=== PATIENT | female | born 1985 | race Two or more races ===

== ENCOUNTER 2025-01-14 18:24 | Observation (INO) | payer BC, MEDICAID, SELFPAY ==
[2025-01-14 18:42] VITALS: BP 154/90; PULSE 62; RESP 16; TEMP 36.8; O2SAT 99
--- NOTE | 2025-01-14 18:59 | XR_ITS ---
Examination: Abdomen sonogram, Limited Date and time of exam: January 14, 2025, 1930 hours INDICATIONS: Epigastric pain today Technique: Real-time renee scale transabdominal sonographic images of the upper abdomen obtained. Findings: Multiple gallstones Gallbladder wall 0.4 cm no definite edema Common bile duct 0.5 cm no stones Pancreatic duct 2.7 cm Liver 14.8 cm Normal hepatopetal portal venous flow Patent IVC IMPRESSION: Cholelithiasis Borderline thickening gallbladder wall, clinical correlation advised, consider HIDA scan or MRCP follow-up as clinically warranted to exclude acute cholecystitis
--- NOTE | 2025-01-14 19:00 | PD.EDRME ---
Rapid Medical Screening Exam [facility] Arrival date/time: 01/14/25 18:24 39F with history of gastric sleeve surgery presents to ED with RUQ/epigastric pain, N/V, and some non-bloody diarrhea. Patient denies dysuria. Patient just started her cycle as well. Chief Complaint: Abdominal Pain Vital signs: Vital Signs Temperature 98.3 F 01/14/25 18:42 Pulse Rate 62 01/14/25 18:42 Respiratory Rate 16 01/14/25 18:42 Blood Pressure 154/90 H 01/14/25 18:42 Pulse Oximetry (%) 99 01/14/25 18:42 Oxygen Delivery Method Room Air 01/14/25 18:42 Exam: RUQ tenderness Clinical Impression: biliary disease vs gastroenteritis vs pancreatitis vs gastritis vs ab pain
[2025-01-14] MEDS: ONDANSETRON ODT 4 MG TABRAP PO (19:15)
[2025-01-14] MEDS: MORPHINE SULF INJ 4 MG/ML VIAL IM (19:15)
[2025-01-14 19:59] LABS: Basophils # (Auto) 0.0 Thou/mm3 (0.0-0.2); Basophils % (Auto) 1 % (0-2.5); Eosinophils # (Auto) 0.0 Thou/mm3 (0.0-0.5); Eosinophils % (Auto) 0 % (0-10); Hematocrit 39.6 % (36.0-46.0); Hemoglobin 13.0 g/dL (12.0-16.0); Immature Granulocytes Auto 0.02 Thou/mm3 (0.00-0.00); Lymphocytes # (Auto) 2.1 Thou/mm3 (1.0-4.8); Lymphocytes % (Auto) 25 % (10-50); Mean Corpuscular HGB Conc 32.8 g/dl (31.0-37.0); Mean Corpuscular Hemoglobin 28.9 pg (25.0-35.0); Mean Corpuscular Volume 88 fL (80-100); Monocytes # (Auto) 0.5 Thou/mm3 (0.0-0.8); Monocytes % (Auto) 6 % (0-12); Neutrophils # (Auto) 5.9 Thou/mm3 (1.8-7.7); Neutrophils % (Auto) 68 % (37-80); Nucleated Red Blood Cell # 0.00 Thou/mm3 (0.00-0.00); Nucleated Red Blood Cell % 0 /100 WBC (0); Platelet Count 294 Thou/mm3 (140-440); RDW Standard Deviation 39.5 fL (36.4-46.3); Red Blood Count 4.50 Miln/mm3 (4.00-5.20); White Blood Count 8.7 Thou/mm3 (3.6-11.0)
[2025-01-14 20:13] LABS: Alanine Aminotransferase 49 U/L (10-49); Albumin, Serum 4.5 gm/dL (3.5-5.0); Albumin/Globulin Ratio 1.5 (1.2-2.2); Alkaline Phosphatase 140 U/L (46-116); Anion Gap 9 (7-16); Aspartate Amino Transferase 81 U/L (0-34); BUN/Creatinine Ratio 18 Ratio (12-20); Bilirubin,Total 0.5 mg/dL (0.3-1.2); Blood Urea Nitrogen 11 mg/dL (9-23); Calcium 9.3 mg/dL (8.3-10.6); Calcium (Corrected) 9.3 mg/dL (8.5-10.1); Carbon Dioxide 24.9 mMol/L (20.0-31.0); Chloride 107 mMol/L (98-107); Creatinine (Component) 0.6 mg/dL (0.6-1.3); Estimated Creatinine Clearance 130.9 mL/min (>60); Globulin 3.0 gm/dL (2.3-3.5); Glucose 107 mg/dL (74-106); Lipase 41 U/L (12-53); Osmolality,Calculated 280 (275-295); Potassium 3.8 mMol/L (3.4-5.1); Sodium 141 mMol/L (136-145); Total Protein 7.5 gm/dL (5.7-8.2); eGFR > 60 See Note
--- NOTE | 2025-01-14 20:45 | EDNOTE_ITS ---
ED Abdominal Pain RME/HPI General Chief Complaint: Abdominal Pain Stated complaint: ABD PAIN, PANIC ATTACK, N/V/D Arrival date/time: 01/14/25 18:24 RME / HPI RME / HPI narrative: 01/14/25 18:24 39F with history of gastric sleeve surgery presents to ED with RUQ/epigastric pain, N/V, and some non-bloody diarrhea. Patient denies dysuria. Patient just started her cycle as well. DR. MULLIGAN MAIN ED EVALUATION: Patient presents with second episode of intense RUQ abdominal pain described as sharp and stabbing with onset of 3 PM constant in nature since that time. Reports multiple bouts of non-bloody emesis. No diarrhea, urinary frequency, urgency, or dysuria. No definite fever or chills. Does note that both current and previous episodes occurred prandially. PMH: Anemia, Bobo's Palsy PSH: x4 Allergies: None Social: Non-smoker, Non-drinker, No illicit drug abuse Exam: RUQ tenderness Impression: biliary disease vs gastroenteritis vs pancreatitis vs gastritis vs ab pain Related Data Home Medications ?Medication ?Instructions ?Recorded ?Confirmed No Known Home Medications 02/15/2206/19 Allergies Allergy/AdvReac Type Severity Reaction Status Date / Time No Known Allergies Allergy Verified 01/14/25 18:27 Review of Systems Review of Systems Systems Reviewed: All systems reviewed, normal except as documented Past Medical History Past Medical History NEUROLOGIC: Positive Bobo's Palsy and Migraine REPRODUCTIVE: Positive Previous Pregnancies HEMATOLOGIC: Positive Blood Disorders and Anemia Surgical History SURGICAL: Positive Section (x4) ED Exam Narrative Physical exam: GEN. APPEARANCE: The patient is alert awake oriented X-3 under moderate distress, writhing due evens RUQ abdominal pain, does not look ill/toxic. Patient has good eye contact. Patient is cooperative. VITALS: All vitals were reviewed and the pulse ox is 99%, which is normal according to my interpretation HEENT: Normocephalic, atraumatic and nontender. Pupils are equal and reactive. Oral mucosa is moist. NECK: Supple, nontender, no meningismus, no JVD. There is no thyromegaly and no lymphadenopathy. CHEST: Nontender on palpation no deformity and no crepitus. CARDIOVASCULAR: Heart regular rhythm, no murmur or gallop rub or extra beats. LUNGS: Clear to auscultation bilaterally with symmetrical chest rise. No labo ring tachypnea or wheezing. No intercostal subcostal retraction. No rales and no rhonchi. ABDOMEN: Soft, flat, positive Garner's Sign. There are no abnormal masses palpated. No pulsatile masses or bruits. Active and normal bowel sounds. EXTREMITIES: Normal inspection and palpation. No edema. No cyanosis. Patient is able to move all 4 extremities well SKIN: Warm and dry, no rashes noted. MUSCULOSKELETAL: No lumbar or midline bony tenderness. There is no CVA tenderness. No paraspinal muscle spasm or tenderness. NEURO: Cranial nerves II through XII grossly intact. There are no focal neur ologic deficits noted. GCS is 15 PSYCHIATRIC: Patient is in normal mood and affect, cooperative. LYMPHATICS: No major lymphadenopathy noted. Course Quality Measures none Orders Category Date Time Status Admit to Inpatient Status Routine Admission 01/14/25 22:07 Active Bedside COVID-19 Antigen Test NOW Care 01/14/25 22:15 Active COVID-19 Screening Questionnaire NOW Care 01/14/25 22:07 Active COVID-19 Screening Questionnaire NOW Care 01/14/25 22:08 Active Decision to Admit X1 Care 01/14/25 22:07 Completed IV [Insert IV] NOW Care 01/14/25 21:24 Active NPO after Midnight ONCE Care 01/14/25 22:09 Active Consult to General Surgery Stat Cons 01/14/25 22:08 Ordered Diet NPO after Midnight Diet 01/15/25 00:01 Active US gall bladder Stat Exams 01/14/25 18:59 Completed CBC Stat Lab 01/14/25 19:39 Completed CMP [Comprehensive Metabolic Panel] Stat Lab 01/14/25 19:39 Completed Drug Screen,Urine Stat Lab 01/14/25 20:42 Completed HCG Qualitative,Urine Stat Lab 01/14/25 20:42 Completed Lipase Stat Lab 01/14/25 19:39 Completed Urinalysis, C/S if Indicated Stat Lab 01/14/25 20:42 Completed Urine Culture Stat Lab 01/14/25 20:42 Received Acetaminophen Jeanie [Tylenol Jeanie] Med 01/14/25 22:07 Pending 650 mg PO PRN PRN HYDROmorphone INJ [Dilaudid Inj] Med 01/14/25 20:49 Discontinued 1 mg IVP X1 ONE Morphine* Inj Med 01/14/25 18:59 Discontinued 4 mg IM X1 ONE Morphine* Inj Med 01/14/25 22:12 Active 4 mg IVP Q6HR PRN Ondansetron Inj [Zofran Inj] Med 01/15/25 00:00 Active 4 mg IVP Q6HR Ondansetron Odt [Zofran Odt] Med 01/14/25 18:59 Discontinued 4 mg PO X1 ONE Prochlorperazine Inj [Compazine Inj] Med 01/14/25 20:49 Discontinued 5 mg IV X1 ONE Sodium Chloride 0.9% 1000 ml [Ns] 1,000 ml Med 01/14/25 22:09 Active IV 80 mls/hr Sodium Chloride 0.9% 1000 ml [Ns] 1,000 ml Med 01/14/25 20:49 Discontinued IV 999 mls/hr Vital Signs Vital signs: Vital Signs Temperature 98.3 F 01/14/25 18:42 Pulse Rate 62 01/14/25 18:42 Respiratory Rate 16 01/14/25 18:42 Blood Pressure 154/90 H 01/14/25 18:42 Pulse Oximetry (%) 99 01/14/25 18:42 Oxygen Delivery Method Room Air 01/14/25 18:42 Abdominal Pain MDM MDM Narrative MDM Narrative:: Scribe Attestation: IPhylicia am scribing for and in the presence of Dr. Mulligan. Provider Notation: Although this document has been carefully reviewed, there may still be some phonetic and other typographical errors. These errors are purely grammatical due to imperfections in the software program and should not be construed in any way to compromise the substance of the patient's medical care during this visit. Please see PE findings. Laboratory markers demonstrate normal WBC, Hemoglobin, and Platelet Count. Serum chemistries essentially unremarkable with the exception of LFT's demonstrating mildly elevated Alkaline Phosphatase of 140 and Lipase was normal. Patient was treated with incremental IV low-dose narcotic analgesics/anti-emetics and IV fluids. Upon serial evaluation, patient is resting comfortably. Given intensity of symptoms and CT findings, General Surgeon contacted for consult and will evaluate patient in the morning. Patient's PMD to admit. Final diagnoses include Biliary colic, Cholelithiasis, and R/O Cholecystitis. Patient data External records reviewed:: [facility] previous records (Reviewed prior ED records from 01/31/21. Patient was seen for Anemia.) Clinical information provided by:: patient Social determinants that could affect healthcare access:: none Patient has the following chronic illnesses:: Anemia How is presenting disease/condition affected by chronic disease/condition?: exacerbated by Evaluation data The following diagnostics were reviewed and interpreted by me:: lab results and radiology exam(s) Lab and/or radiology exams considered but not ordered:: None Interpretation Summary: RADIOLOGY Gall Bladder US: Findings: Multiple gallstones Gallbladder wall 0.4 cm no definite edema Common bile duct 0.5 cm no stones Pancreatic duct 2.7 cm Liver 14.8 cm Normal hepatopetal portal venous flow Patent IVC IMPRESSION: Cholelithiasis Borderline thickening gallbladder wall, clinical correlation advised, consider HIDA scan or MRCP follow-up as clinically warranted to exclude acute cholecystitis Medications / Prescriptions Medications or Prescriptions considered but not ordered:: None Medication administrations:: Medication Administration History Acetaminophen (Acetaminophen Jeanie 325 Mg/10 Ml Udc) 650 mg PO PRN PRN PRN Reason: FEVER/MILD PAIN Stop: 02/13/25 22:06 Sodium Chloride (Ns) 1,000 mls @ 80 mls/hr IV .[id number] ONE Stop: 01/15/25 10:38 Morphine Sulfate (Morphine Sulf Inj 4 Mg/Ml Vial) 4 mg IVP Q6HR PRN PRN Reason: PAIN SCALE 4-10(Mod-Sev Ondansetron HCl (Ondansetron Inj 2 Mg/Ml Inj 2 Ml) 4 mg IVP Q6HR ORA; Protocol Stop: 02/14/25 00:00 Discontinued Medications Hydromorphone HCl (Hydromorphone Inj 2 Mg/Ml Vial) 1 mg IVP X1 ONE Stop: 01/14/25 20:50 Last Admin: 01/14/25 21:29 Dose: 1 mg Documented By: YULIA Sodium Chloride (Ns) 1,000 mls @ 999 mls/hr IV .Q1H1M ONE Stop: 01/14/25 21:49 Last Admin: 01/14/25 21:29 Dose: 999 mls/hr Documented By: YULIA Morphine Sulfate (Morphine Sulf Inj 4 Mg/Ml Vial) 4 mg IM X1 ONE Stop: 01/14/25 19:00 Last Admin: 01/14/25 19:15 Dose: 4 mg Documented By: OA Ondansetron HCl (Ondansetron Odt 4 Mg Tabrap) 4 mg PO X1 ONE; Protocol Stop: 01/14/25 19:00 Last Admin: 01/14/25 19:15 Dose: 4 mg Documented By: OA Prochlorperazine Edisylate (Prochlorperazine Inj 5 Mg/Ml Vial 2 Ml) 5 mg IV X1 ONE; Protocol Stop: 01/14/25 20:50 Last Admin: 01/14/25 21:30 Dose: 5 mg Documented By: YULIA See above if any Consultations Consultation(s) initiated? (list below): Yes Consultation #1 (Physician, Specialty, Details): Dr. Hinson, our GI specialist, made aware of the patient?s HPI, PMHx, lab and/or radiology results. Discussed treatment plan. Will consult an admission to the hospitalist. Time: 21:51 Consultation #2 (Physician, Specialty, Details): Discussed with Dr. Bennett, resident from Hospitalist team, for admission. Reviewed the patient?s HPI, PMHx, lab and/or radiology results. Discussed treatment plan. Advised to contact Dr. Fernandez. Time: 21:56 Consultation #3 (Physician, Specialty, Details): Dr. Fernandez, patient PMD, made aware of the patient?s HPI, PMHx, lab and/or radiology results. Discussed treatment plan. Will admit patient. Time: 22:00 Diagnosis Differential diagnosis abdominal pain: abdominal pain, calculus of kidney, constipation, diverticulitis, gastroenteritis, small bowel obstruction and other (Cholecystitis, Cholelithiasis) Most likely diagnosis given after review of the tests above:: Biliary colic, Cholelithiasis, R/O Cholecystitis Admission Indicated Admission indicated?: indicated Explain why admission is indicated or not indicated:: Biliary colic, Cholelithiasis, R/O Cholecystitis Admission Request Was there a request for admission?: Yes Admission Attestation Admission request attestation: Discussed case with [] from Hospitalist service regarding admission. Discussed patients ED course, exam findings, labs, and radiology results. The Hospitalist [agrees,declines] to accept the patient for admission. Disposition Plan Disposition Plan: Admit Discharge Plan Plan Patient Disposition: Admit Acute Care w/in Hospital Prescriptions/Referrals Prescriptions/Med Rec: No Action No Known Home Medications Referrals: Kamilla Fernandez MD [Primary Care Provider, Nephrology] - In 1 week Problem List Clinical Impression: Biliary colic, Cholelithiasis, Cholecystitis, unspecified Patient/Caregiver Discharge Instructions Print Language: [place] Stand Alone Forms: Rissa Award Info., Patient Portal Info Letter
[2025-01-14 20:57] LABS: Collection Type, Urine Clean Catch
[2025-01-14 21:26] LABS: Amorphous Crystals,Urine Present (Absent); Bacteria,Urine 2+; Bilirubin,Urine Negative (Negative); Blood,Urine 3+ (Negative); Clarity,Urine Turbid (Clear/Hazy); Color,Urine Yellow (Lt Yel-Yel); Glucose, Urine Negative (Negative); Ketones,Urine 1+ (Negative); Leukocyte Esterase,Urine Negative (Negative); Nitrite,Urine Negative (Negative); PH,Urine 6.0 (5.0-7.0); Protein,Urine Trace (Neg - Trace); RBC,Urine 9 /hpf (0-3); Specific Gravity,Urine 1.027 (1.001-1.035); Squamous Epithelial Cell,Urine 3 /hpf (0-5); Urobilinogen,Urine 2.0 mg/dL (0.0-1.0); WBC,Urine < 1 /hpf (0-5)
[2025-01-14 21:27] VITALS: BP 132/89; PULSE 67; RESP 16; TEMP 37.2; O2SAT 99
[2025-01-14] MEDS: SODIUM CHLORIDE 0.9% 1000 ML 1,000 ML 999 ML IV (21:29)
[2025-01-14] MEDS: HYDROmorphone INJ 2 MG/ML VIAL 1 MG IVP (21:29)
[2025-01-14 21:30] LABS: Culture Indicated,Urine Yes
[2025-01-14] MEDS: PROCHLORPERAZINE INJ 5 MG/ML VIAL 2 ML IV (21:30)
[2025-01-14 21:35] LABS: HCG Qualitative,Urine Negative
[2025-01-14 22:06] LABS: Amphetamine/Methamp Scrn,U Negative (Negative); Barbiturate Screen,Urine Negative (Negative); Benzodiazepines Screen,Urine Negative (Negative); Benzoylecgonine Screen, Ur Negative (Negative); Fentanyl Screen,Urine Negative (Negative); Opiate Screen,Urine Positive (Negative); THC Screen,Urine Negative (Negative)
--- NOTE | 2025-01-14 22:06 | PD.SURCONS ---
HPI Consult details Consult date: 01/14/25 Reason for consultation narrative: Right upper quadrant abdominal pain with nausea and vomiting History of present illness: 39-year-old female presenting to the emergency department with worsening abdominal pain. She has had 2 weeks history of intermittent epigastric and right upper quadrant abdominal pain. Over the past 2 days her pain has become persistent and progressively worse. She has not been able to eat or tolerate any food and had nausea and vomiting. She denies jaundice, discoloration of urine or stool. Her liver enzymes were unremarkable except mildly elevated alkaline phosphatase, abdominal ultrasound revealed multiple gallstones with gallbladder wall thickening. Review of Systems Constitutional Constitutional: Denies chills and Denies fever(s) Cardiovascular Cardiovascular: Denies chest pain Respiratory Respiratory: Denies cough Gastrointestinal Gastrointestinal: Reports abdominal pain, Reports nausea and Reports vomiting Genitourinary Genitourinary: Denies difficulty voiding Musculoskeletal Musculoskeletal: Reports back pain Hematologic/Lymphatic Hematologic/Lymphatic: Denies easy bleeding and Denies easy bruising Past Medical History Surgical History OTHER SURGICAL HX: , BTL, hysteroscopy, marsupialization of [place] cyst, Lap gastric sleeve resection Meds Home Medications and Allergies Home Medications ?Medication ?Instructions ?Recorded ?Confirmed ?Type No Known Home Medications 02/15/22 01/14/25 History Allergies Allergy/AdvReac Type Severity Reaction Status Date / Time No Known Allergies Allergy Verified 01/14/25 18:27 Exam Vital Signs Temp Pulse Resp BP Pulse Ox O2 Del Method 98.9 F 67 16 132/89 H 99 Room Air 01/14/25 21:27 01/14/25 21:27 01/14/25 21:27 01/14/25 21:27 01/14/25 21:27 01/14/25 21:27 Constitutional Constitutional: no acute distress Routine HEENT Exam Eye: Present PERRL (anicteric sclera) Routine Abdominal Exam Abdominal: Present soft, normoactive bowel sounds and tenderness (Epigastric and RUQ tenderness to palpation, positive Garner's sign); Absent distended Results Results: Laboratory Laboratory results: results reviewed Results: Imaging US - abdomen: report reviewed and image reviewed Assessment & Plan Additional Assessment Additional comments: Symptomatic cholelithiasis. Plan Keep NPO with IV fluids. Will plan for laparoscopic possible open cholecystectomy tomorrow. Risks include but not limited to infection, bleeding, injury to bowel, liver, stomach, bile duct, retained stone, bile leak, abdominal sepsis and or abdominal abscess, need for further procedure and or operation discussed with the patient. Benefits and alternatives explained to her, all her questions answered, she agreed and consented to proceed with the operation.
[2025-01-14] MEDS: SODIUM CHLORIDE 0.9% 1000 ML 1,000 ML 80 ML IV (22:51)
[2025-01-14 23:23] VITALS: BMI 31.6
[2025-01-15] VITALS (17 sets, daily range): BP systolic 95–176; BP diastolic 63–101; PULSE 52–92; RESP 12–99; TEMP 36.3–37.1; O2SAT 96–100
[2025-01-15] MEDS: ONDANSETRON INJ 2 MG/ML INJ 2 ML 4 MG IVP ×3 (02:41→23:28)
--- NOTE | 2025-01-15 03:24 | PC.NURSE ---
poLight computer downtime from 02:00 to 02:51 am.
--- NOTE | 2025-01-15 09:38 | ESHP_ITS ---
Documentation for date of: 01/15/25 [facility] History of Present Illness Chief complaint: Right upper quadrant pain, nausea, vomiting. History of present illness: 39-year-old female with a history of gastric sleeve surgery and prior C-sections ?4 presented to the ED with 1 day of sharp right upper quadrant and epigastric pain associated with nausea, vomiting, and several episodes of non-bloody diarrhea. Pain radiates to the back, worsens with food intake, and is associated with mild bloating. Denies dysuria, chest pain, or shortness of breath. Just started her menstrual cycle. No prior similar episodes. In the ED, vitals stable. Exam notable for RUQ tenderness with positive Garner?s sign. Labs showed mild elevation in alkaline phosphatase (140) with normal lipase and otherwise unremarkable CBC/CMP. RUQ ultrasound revealed multiple gallstones with borderline gallbladder wall thickening and no biliary duct dilation. Patient received IV fluids, Zofran, and narcotic analgesia with partial improvement. General Surgery consulted and will plan for laparoscopic vs open cholecystectomy. Patient remains NPO pending evaluation. ROS: Negative except as noted in HPI. PMH: * Anemia * Bobo?s palsy PSH: * Gastric sleeve surgery * section ?4 Allergies: No known drug allergies Home Medications: None reported Social History: Non-smoker, non-drinker, no illicit drug use Family History: Noncontributory Exam Vital Signs Temp Pulse Resp BP Pulse Ox O2 Del Method 97.5 F 52 L 17 113/66 96 Room Air 01/15/25 08:00 01/15/25 08:00 01/15/25 08:00 01/15/25 08:00 01/15/25 08:00 01/15/25 08:00 Narrative Exam General: Alert, awake, oriented ?3, moderate distress due to RUQ pain. HEENT: Normocephalic, atraumatic, moist mucous membranes. Neck: Supple, no JVD or lymphadenopathy. Heart: Regular rate and rhythm, no murmurs. Lungs: Clear to auscultation bilaterally. Abdomen: Soft, non-distended, positive Garner?s sign, RUQ tenderness, no rebound/guarding, normal bowel sounds. Extremities: No edema or cyanosis. Skin: Warm, dry, no jaundice or rash. Neuro: Cranial nerves II?XII intact, no focal deficits. Results: Labs 01/14/25 19:39 01/14/25 19:39 Labs: Short CBC 01/14/25 Range/Units 19:39 WBC 8.7 (3.6-11.0) Thou/mm3 Hgb 13.0 (12.0-16.0) g/dL Hct 39.6 (36.0-46.0) % Plt Count 294 (140-440) Thou/mm3 BMP 01/14/25 19:39 Sodium 141 Potassium 3.8 Chloride 107 Carbon Dioxide 24.9 BUN 11 Creatinine 0.6 Glucose 107 H Calcium 9.3 Liver Function 01/14/25 Range/Units 19:39 Total Bilirubin 0.5 (0.3-1.2) mg/dL AST 81 H (0-34) U/L ALT 49 (10-49) U/L Alkaline Phosphatase 140 H (46-116) U/L Albumin 4.5 (3.5-5.0) gm/dL Urine 01/14/25 Range/Units 20:42 Urine Color Yellow (Lt Yel-Yel) Urine Clarity Turbid A (Clear/Hazy) Urine pH 6.0 (5.0-7.0) Ur Specific [place] 1.027 (1.001-1.035) Urine Protein Trace (Neg - Trace) Urine Glucose (UA) Negative (Negative) Quality Measures Quality Measures VTE prophylaxis Medications Home Medications and Allergies Allergies Allergy/AdvReac Type Severity Reaction Status Date / Time No Known Allergies Allergy Verified 01/14/25 18:27 Visit Medications Acetaminophen (Acetaminophen 325 Mg Tablet) 650 mg PO Q6HR PRN PRN Reason: MILD PAIN 1-3 OR FEVER >101.5 Stop: 02/13/25 22:06 Sodium Chloride (Ns) 1,000 mls @ 80 mls/hr IV .[id number] ONE Stop: 01/15/25 10:38 Last Admin: 01/14/25 22:51 Dose: 80 mls/hr Morphine Sulfate (Morphine Sulf Inj 4 Mg/Ml Vial) 4 mg IVP Q6HR PRN PRN Reason: PAIN SCALE 4-10(Mod-Sev Ondansetron HCl (Ondansetron Inj 2 Mg/Ml Inj 2 Ml) 4 mg IVP Q6HR ORA; Protocol Stop: 02/14/25 00:00 Last Admin: 01/15/25 06:46 Dose: Not Given Discontinued Medications Hydromorphone HCl (Hydromorphone Inj 2 Mg/Ml Vial) 1 mg IVP X1 ONE Stop: 01/14/25 20:50 Last Admin: 01/14/25 21:29 Dose: 1 mg Sodium Chloride (Ns) 1,000 mls @ 999 mls/hr IV .Q1H1M ONE Stop: 01/14/25 21:49 Last Infusion: 01/14/25 22:35 Dose: Infused Morphine Sulfate (Morphine Sulf Inj 4 Mg/Ml Vial) 4 mg IM X1 ONE Stop: 01/14/25 19:00 Last Admin: 01/14/25 19:15 Dose: 4 mg Ondansetron HCl (Ondansetron Odt 4 Mg Tabrap) 4 mg PO X1 ONE; Protocol Stop: 01/14/25 19:00 Last Admin: 01/14/25 19:15 Dose: 4 mg Prochlorperazine Edisylate (Prochlorperazine Inj 5 Mg/Ml Vial 2 Ml) 5 mg IV X1 ONE; Protocol Stop: 01/14/25 20:50 Last Admin: 01/14/25 21:30 Dose: 5 mg Assessment & Plan Plan 39F with history of gastric sleeve surgery presenting with acute RUQ pain, nausea, and vomiting; imaging consistent with cholelithiasis with possible early cholecystitis. Patient currently hemodynamically stable and pain improved with medical management. # Cholelithiasis RUQ pain with positive Garner?s sign and borderline gallbladder wall thickening. No leukocytosis, normal lipase, mild elevation in Alk Phos 140. Plan: * NPO * Continue IV fluids * IV Zofran PRN * IV analgesics PRN * Trend LFTs daily * Monitor for fever, leukocytosis, peritoneal signs * General Surgery following: plan for laparoscopic possible open cholecystectomy # History of gastric sleeve Increased risk for gallstone formation post-bariatric surgery. Plan: * Continue NPO until surgical clearance * Resume clear liquid diet post-surgery when appropriate # Anemia History noted, current Hgb stable. Plan: * Monitor CBC daily Health Maintenance: Diet: NPO Thromboprophylaxis: SCDs while awaiting surgery GI prophylaxis: PPI while NPO Code Status: Full Disposition: Inpatient for surgical evaluation ----- Plan discussed with attending physician Dr. Jim Haskins MD PGY-1 Internal Medicine Attending Provider Attestation/Addendum Patient seen and examined with resident physician Dr. Haskins. Note reviewed, agree with findings and recommendations. Patient admitted with abdominal pain, cholelithiasis. Will go for cholecystectomy today.
[2025-01-15] MEDS: MORPHINE SULF INJ 4 MG/ML VIAL IVP (10:26)
--- NOTE | 2025-01-15 13:42 | PD.SUROPNT ---
Date of Procedure 01/15/25 Pre Op Diagnosis Symptomatic cholelithiasis Post Op Diagnosis Cholelithiasis with cholecystitis Procedure Laparoscopic cholecystectomy Findings Distended and tense gallbladder with multiple gallstones and chronic cholecystitis Procedure Description Patient was brought into the operating room in supine position. After administration of general endotracheal anesthesia abdomen was prepped and draped in standard surgical manner. A Veress needle was inserted through the umbilicus and pneumoperitoneum was obtained up to 15 mmHg. The Veress needle was then removed, a 5 mm infraumbilical incision was made and the 5mm trocar was inserted. Laparoscopic camera was placed. Under direct visualization a laparoscopic camera a 10 mm trocar was placed in subxiphoid and two 5 mm trocars placed in right upper quadrant. The gallbladder was identified and was noted to be very distended and tense with multiple gallstones. The gallbladder was decompressed with an aspirator. It was retracted cephalad and laterally. Dissection started near the infundibulum of gallbladder where cystic duct and gallbladder junction clearly identified. The cystic duct was circumferentially dissected off the peritoneum and surrounding inflammatory tissue. The critical view of safety was clearly demonstrated. Cystic duct was then divided between 2 endoclips proximally and one distally. The cystic artery was similarly dissected and divided. The gallbladder was then from the liver bed using electrocautery. The gallbladder was then placed inside an Endo Catch and removed from the abdomen utilizing subxiphoid trocar site. The area was copiously and thoroughly washed and irrigated, all the fluid was suctioned and the suction fluid returned clear. Hemostasis achieved using electrocautery. Endoclips noted be in place and intact without any bleeding or any leakage. Hemostasis was adequate and satisfactory. The subxiphoid trocar sites fascial defect was closed with 0 Vicryl using Endo Closure device. Instruments and trocars removed, pneumoperitoneum was evacuated and the incisions closed with 4-0 Monocryl in subcuticular fashion. Instrument needle and sponge counts were all reported to be correct X2. Patient tolerated the procedure well, was extubated, breathing spontaneously and without difficulty and was transferred to postanesthesia care in stable condition. Anesthesia GETA and local Pathology / specimen Other (Gallbladder and contents) Estimated Blood Loss 50 Condition Stable Disposition PACU Surgeon Tere Hinson MD Surgical Staff Operation Date: 01/15/25 15:00 Case Staff Anesthesiologist: Lul Manzano loan operations manager: Perlita Johnson
--- NOTE | 2025-01-15 13:45 | SUR.PHASEI ---
1346 patient arrived to recovery resting comfortably in [facility], on oxygen 4L via oxy mask with an oral airway in place, breathing unlabored, vital signs stable, dressing intact to abdomen; dermabond, no bleeding noted, report received from Dr. Manzano and Arsenio ROBERTS
[2025-01-15] MEDS: fentaNYL CIT INJ 50 mCg/ML AMP 2ML 25 MCG IVP ×3 (14:06→14:47)
--- NOTE | 2025-01-15 14:10 | SUR.PHASEI ---
1410 Verbal order read-back received from Dr. Manzano Demerol 12.5mg via IVP for shivering, will place order and administer per anesthesia order
--- NOTE | 2025-01-15 14:25 | SUR.PHASEI ---
1425 medication administer for shivering effective, shivering has ceased, patient appears to be resting comfortably in [facility]
[2025-01-15] MEDS: MEPERIDINE INJ 50 MG/ML VIAL 12.5 MG IVP (14:27)
--- NOTE | 2025-01-15 15:27 | SUR.PHASEI ---
1520 report given to Jackie ROBERTS, patient meets discharge criteria from recovery, awake and alert, breathing unlabored, vital signs stable, per patient her pain is tolerable, dressing intact; no bleeding noted, drinking fluids; denies nausea 1527 patient transported via gurney to room 368 without incident
[2025-01-15] MEDS: DOCUSATE SOD LIQD 100 MG/10 ML UDC PO (18:07)
[2025-01-15] MEDS: MORPHINE SULF INJ 4 MG/ML VIAL 3 MG IVP (19:28)
[2025-01-15] MEDS: HYDROcodone/APAP 5/325 TABLET 1 TAB PO (23:27)
--- NOTE | 2025-01-15 23:36 | PC.NURSE ---
Pain level is 8 but pt wants to try [place] instead of morphine this time. Will cont to monitor.
[2025-01-16] VITALS: BP 176/80; PULSE 59; RESP 18; TEMP 36.5; O2SAT 98
[2025-01-16 04:00] VITALS: BP 176/80; PULSE 59; RESP 18; TEMP 36.5; O2SAT 98
[2025-01-16] MEDS: HYDROcodone/APAP 5/325 TABLET 1 TAB PO (05:26)
--- NOTE | 2025-01-16 05:45 | PC.NURSE ---
Pt requested Ovid for pain and refused Zofran, no N/V. Pt is passing gas, voiding urine well, no BM yet.
[2025-01-16 08:00] VITALS: BP 129/69; PULSE 63; RESP 18; TEMP 36.4; O2SAT 99
--- NOTE | 2025-01-16 09:00 | PC.NURSE ---
Patient ambulating in the hallway, tolerating well
[2025-01-16] MEDS: ONDANSETRON INJ 2 MG/ML INJ 2 ML 4 MG IVP (09:21)
[2025-01-16] MEDS: MORPHINE SULF INJ 4 MG/ML VIAL 3 MG IVP (09:21)
[2025-01-16] MEDS: PANTOPRAZOLE 20 MG TABLET PO (09:23)
--- NOTE | 2025-01-16 12:07 | ESDS_ITS ---
Planned Discharge Date 01/16/25 DS: Providers Provider Date of admission: 01/14/25 22:07 Primary care physician: Kamilla Fernandez MD Admitting Provider: Kamilla Fernandez MD Attending Provider on Admission: Kamilla Fernandez MD Consults: 01/14/25 22:08 Consult to General Surgery Stat Comment: Consulting Provider: Tere Hinson 01/14/25 23:42 Referral Respiratory Therapy Routine Comment: Attending Provider on DC: Kamilla Fernandez MD Discharging Provider: Amor Haskins MD DS: Diagnosis Problem List Completed Was Problem List Reviewed/Reconciled?: Yes Hospital Course Hospital Course Hospital course: 39-year-old female with a history of gastric sleeve surgery and prior C-sections ?4 presented to the ED with 1 day of sharp right upper quadrant and epigastric pain associated with nausea, vomiting, and several episodes of non-bloody diarrhea. Pain radiates to the back, worsens with food intake, and is associated with mild bloating. Denies dysuria, chest pain, or shortness of breath. Just started her menstrual cycle. No prior similar episodes. In the ED, vitals stable. Exam notable for RUQ tenderness with positive Garner?s sign. Labs showed mild elevation in alkaline phosphatase (140) with normal lipase and otherwise unremarkable CBC/CMP. RUQ ultrasound revealed multiple gallstones with borderline gallbladder wall thickening and no biliary duct dilation. Patient received IV fluids, Zofran, and narcotic analgesia with partial improvement. General Surgery consulted and will plan for laparoscopic vs open cholecystectomy. Patient remains NPO pending evaluation. The patient was admitted for symptomatic cholelithiasis with suspected acute cholecystitis. She underwent a laparoscopic cholecystectomy on 01/15/2025, which was uneventful. The gallbladder was distended with multiple gallstones and signs of chronic cholecystitis. The surgery was successfully completed with no complications, and the patient tolerated the procedure well. Postoperatively, the patient was extubated and transferred to the PACU in stable condition. She remained stable throughout the night, with no significant pain or complications. The patient was started on oral pain medication and tolerated it well. She is now able to ambulate without assistance and is stable for discharge. Diagnoses on Discharge: #Cholelithiasis with Cholecystitis #Symptomatic Cholelithiasis Discharge instructions: -Diet: Regular diet as tolerated -Medications: * Pain management with oral opioids as needed * Postoperative antibiotics are not required -Follow-up: Follow up with Dr. Hinson in 1 week -Keep incisions clean and dry; no heavy lifting or strenuous activity for 2 weeks -Return to ER if: Increased pain, fever, redness, or discharge from surgical site, or if symptoms of infection develop -Discharge Instructions: * Take pain medications as prescribed * Avoid driving until off pain medications * Follow up with primary care and surgeon as scheduled ----- Plan discussed with attending physician Dr. Jim Haskins MD PGY-1 Internal Medicine Time Spent with Patient Time attestation: Total time spent providing and/or coordinating discharge services: Time spent: Greater than 30 minutes Exam Vital Signs Temp Pulse Resp BP Pulse Ox O2 Del Method O2 Flow Rate 97.6 F 63 18 129/69 99 Room Air 4 01/16/25 08:00 01/16/25 08:00 01/16/25 08:00 01/16/25 08:00 01/16/25 08:00 01/16/25 08:00 01/16/25 04:00 Narrative Exam General: Alert and oriented, no acute distress. HEENT: Normal. Cardiovascular: Regular rhythm, no murmurs. Lungs: Clear to auscultation. Abdomen: Soft, non-distended, mild tenderness at incision sites, no signs of infection. Extremities: No edema, full range of motion. Neuro: Cranial nerves intact, no focal deficits. Discharge Plan Plan Patient Disposition: HOME (Self Care) Care Plan Goals: -Diet: Regular diet as tolerated -Medications: * Pain management with oral opioids as needed * Postoperative antibiotics are not required -Follow-up: Follow up with Dr. Hinson in 1 week -Keep incisions clean and dry; no heavy lifting or strenuous activity for 2 weeks -Return to ER if: Increased pain, fever, redness, or discharge from surgical site, or if symptoms of infection develop -Discharge Instructions: * Take pain medications as prescribed * Avoid driving until off pain medications * Follow up with primary care and surgeon as scheduled Prescriptions/Referrals Prescriptions/Med Rec: New hydrocodone-acetaminophen 5-325 mg Tablet 1 tab PO Q6HR MDD 4 PRN (Reason: pain (scale score 7-10)) Qty: 10 0RF docusate sodium [Colace] 100 mg capsule 100 mg PO BID Qty: 20 0RF ibuprofen 600 mg tablet 600 mg PO Q8H PRN (Reason: pain (scale score 4-6)) Qty: 15 0RF Referrals: Kamilla Fernandez MD [Primary Care Provider, Nephrology] Patient/Caregiver Discharge Instructions Education Materials: After Gallbladder Surgery, Cholecystectomy Laparoscopic Dc, Preventing Surgical Site Infections Print Language: Hebrew Activity Restrictions/Additional Instructions: May shower in 24 hours. Avoid lifting, straining, pulling or pushing for 4 weeks. May take over the counter laxatives if no bowel movements in 2 days. Follow up with Dr. Hinson in 2 weeks, please call [phone] for an appointment. Continue clear liquids today, may advance to low fat diet as tolerated tomorrow. ok to go to work- monday f/u with dr. fernandez in 1-2 weeks Stand Alone Forms: Rissa Award Info., Patient Portal Info Letter, Work/Release Restrictions Discharge Order Discharge Orders: Discharge (Routine); Ordered 01/16/25 Ordered By: Kamilla Fernandez Quality Discharge Quality Measures VTE prophylaxis MD Attestestation MD Attestation Patient seen and examined with resident physician Dr. Haskins. Note reviewed, agree with findings and recommendations. Patient admitted with abdominal pain, cholelithiasis. s/p cholecystectomy dc today
== END 2025-01-16 11:06 | disposition home or self-care (01) ==
LOC: SERX 22:02 → SERHOLD 23:04 → S3SX 01-15 05:23 → SERHOLD 01-15 10:15 → S3SX 01-15 10:16
PROVIDERS: Physician Assistant; Surgery; Admitting Provider Internal Medicine; Emergency Provider Emergency Medicine; PCP Internal Medicine; Visit Provider Internal Medicine
PROC: 0FT44ZZ Resection of Gallbladder, Percutaneous Endoscopic Approach (ICD-10-PCS; CPT 47562; principal; 2025-01-15 14:45)
DX: K80.10 Calculus of gallbladder with chronic cholecystitis without obstruction (principal); Z98.84 Bariatric surgery status
CPT/HCPCS: 47562; 36415; 76705; 80053; 80307; 81001; 81025; 83690; 85025; 87086; 87811; 96361; 96372; 96374; 96375; 96376; 99284; A4217; A4649; G0378; J0131; J0694; J0780; J1100; J1171; J2175; J2250; J2270; J2405; J2704; J3010; J3490; J7030; Q0162; A9270

== ENCOUNTER 2025-02-04 20:14 | Emergency (ER) | payer BC, MEDICAID, SELFPAY ==
[2025-02-04 20:26] VITALS: BP 135/87; PULSE 65; RESP 18; TEMP 36.8; O2SAT 99
--- NOTE | 2025-02-04 20:36 | XR_ITS ---
Examination: Abdomen sonogram, Limited Date and time of exam: February 04, 2025, 2042 hours INDICATIONS: Cholecystectomy 3 weeks ago followed by right upper abdominal pain Technique: Real-time renee scale transabdominal sonographic images of the upper abdomen obtained. Findings: Absent gallbladder Normal common bile duct 0.3 cm Pancreatic head 2.3 cm Liver 14.2 cm no liver lesions Normal hepatopetal portal venous flow Patent IVC IMPRESSION: Absent gallbladder Normal common bile duct
--- NOTE | 2025-02-04 20:36 | PD.EDRME ---
Rapid Medical Screening Exam RME Arrival date/time: 02/04/25 20:14 39F with history of cholecystectomy 3 weeks presents to ED with continued epigastric pain. Patient denies N/V. Postop appt w/ Joya is this Monday. Chief Complaint: Abdominal Pain Time Seen by Provider: 02/04/25 20:51 Vital signs: Vital Signs Temperature 98.2 F 02/04/25 20:26 Pulse Rate 65 02/04/25 20:26 Respiratory Rate 18 02/04/25 20:26 Blood Pressure 135/87 H 02/04/25 20:26 Pulse Oximetry (%) 99 02/04/25 20:26 Oxygen Delivery Method Room Air 02/04/25 20:26 Exam: Epigastric tenderness. Hunched over. Clinical Impression: pancreatitis vs CBD stone vs gastritis vs ab pain
--- NOTE | 2025-02-04 20:50 | PD.EDABDPN ---
ED Abdominal Pain RME/HPI General Chief Complaint: Abdominal Pain Stated complaint: UPPER ABD PAIN Time seen by provider: 02/04/25 20:51 Arrival date/time: 02/04/25 20:14 RME / HPI RME / HPI narrative: 02/04/25 20:14 39F with history of cholecystectomy 3 weeks presents to ED with continued epigastric pain. Patient denies N/V. Postop appt w/ Joya is this Monday. Dr. Jaramillo?s Main ED Evaluation: 39yo female who had a recent cholecystectomy on 01/15/[address] Hinson presents to the ED for a chief complaint of epigastric pain x 1 week. Patient states her pain initially subsided after she had her gallbladder removed, but reports it returned 1 week ago and has since gotten progresively worse. No radiation or migration. Denies N/V, fever, chills, or any other associated symptoms. NKA. Related Data Previous Rx's ?Medication ?Instructions ?Recorded docusate sodium 100 mg capsule 100 mg PO BID #20 caps 01/15/25 (Colace) hydrocodone 5 mg-acetaminophen 325 1 tab PO Q6HR PRN pain (scale 01/15/25 mg tablet score 7-10) #10 tabs ibuprofen 600 mg tablet 600 mg PO Q8H PRN pain (scale 01/15/25 score 4-6) #15 tabs pantoprazole 40 mg tablet,delayed 40 mg PO QDAY #30 tabs 02/04/25 release (Protonix) Allergies Allergy/AdvReac Type Severity Reaction Status Date / Time No Known Allergies Allergy Verified 01/14/25 18:27 Review of Systems Review of Systems Systems Reviewed: All systems reviewed, normal except as documented Past Medical History Past Medical History NEUROLOGIC: 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.) and Migraine (had one yesterday- takes ecedrin); Negative Neurological Disorders or Seizures CARDIAC: Negative Cardiac Disorders or Congestive Heart Failure RESPIRATORY: Negative Chronic Obstructive Pulmonary Disease (COPD) GASTROINTESTINAL: Negative Gastrointestinal Disorders, Hepatitis or Colorectal Cancer GENITOURINARY: Negative Genitourinary Disorders, Renal Disease or Prostate Cancer REPRODUCTIVE: Positive Previous Pregnancies; Negative Breast Cancer or Testicular Cancer MUSCULOSKELETAL: Negative Musculoskeletal Disorders or Bone Cancer ENDOCRINE: Negative Endocrine Disorders, Diabetes Mellitus Type 1 or Diabetes Mellitus Type 2 HEMATOLOGIC: Positive Blood Disorders and Anemia OTHER HISTORY: Positive Blood Transfusions; Negative Hospitalization, Autoimmune Disease, Down Syndrome, Developmental Delay, Shingles, Falls, Blood Transfusion Reaction, Anesthesia Reactions, Organ Transplant, Chemotherapy, Radiation Therapy, Hyperbaric Therapy, MRSA, VRSA, Vancomycin-Resistant Enterococci, Human Immunodeficiency Virus (HIV), Chicken Pox, Measles, Mumps, Rubella (Malian Measles), Pertussis, Clostridium Difficile, Breast Cancer, Cervical Cancer, Colorectal Cancer, Lung Cancer, Ovarian Cancer, Prostate Cancer or Testicular Cancer Family History FAMILY HISTORY: Negative Family Psychiatric Problems, Family Respiratory Disorders, Family Cardiac Disorders, Family Gastrointestinal Problems, Family Cancer, Family Surgery or Family Anesthesia Reaction Surgical History SURGICAL: Positive Tubal Ligation and Section; Negative Endocrine Surgery, Ear Surgery, Abdominal Surgery, Nephrectomy, Joint Replacement, Neurologic Surgery, Mastectomy or Organ Transplant Social History SMOKING STATUS: Never smoker SECOND HAND EXPOSURE: No ED Exam Narrative Physical exam: Generally patient is alert somewhat ill-appearing and in mild distress secondary to pain, heart regular rate and rhythm, lungs clear to auscultation equal bilaterally, abdomen soft bowel sounds present nondistended laparoscopic surgical wounds showed no erythema or discharge. There is epigastric abdominal tenderness without obvious rebound. Course Quality Measures none Orders Category Date Time Status CT Screening NOW Care 02/04/25 21:01 Active IV [Insert IV] NOW Care 02/04/25 21:[address] abdomen pelvis w con Stat Exams 02/04/25 21:01 Completed US gall bladder Stat Exams 02/04/25 20:36 Completed CBC Stat Lab 02/04/25 21:05 Completed CMP [Comprehensive Metabolic Panel] Stat Lab 02/04/25 21:05 Completed HCG Qualitative,Urine Stat Lab 02/04/25 21:05 Completed Lipase Stat Lab 02/04/25 21:05 Completed Lidocaine 2% Viscous [Xylocaine 2% Viscous] Med 02/04/25 22:38 Once 15 ml PO X1 ONE Morphine* Inj Med 02/04/25 21:01 Discontinued 4 mg IVP X1 ONE Pantoprazole Inj [Protonix Inj] Med 02/04/25 22:38 Once 40 mg IVP X1 ONE mg Hyd/Al Hyd/Alhaji Susp [Maalox Susp] Med 02/04/25 22:38 Once 30 ml PO X1 ONE Vital Signs Vital signs: Vital Signs Temperature 98.2 F 02/04/25 20:26 Pulse Rate 65 02/04/25 20:26 Respiratory Rate 18 02/04/25 20:26 Blood Pressure 135/87 H 02/04/25 20:26 Pulse Oximetry (%) 99 02/04/25 20:26 Oxygen Delivery Method Room Air 02/04/25 20:26 Abdominal Pain MDM MDM Narrative MDM Narrative:: Scribe Attestation: 02/04/25 - I, Edie Whiting am scribing for and in the presence of Dr. Jaramillo. I interpreted all labs. There is no leukocytosis. LFTs were normal. CT scan down the abdomen and pelvis is essentially unremarkable without abscess with the exception of a slight gastritis. Patient received morphine 4 mg IV as well as Protonix 40 mg IV and a GI cocktail consisting of Maalox and viscous lidocaine. Patient will be discharged on Protonix to be taken as prescribed. Avoid hot spicy greasy fatty foods. She may use [id number] Maalox or Mylanta as needed for pain. Keep her follow-up appointment with her surgeon. Return to ER as needed or if condition worsens. Patient data External records reviewed:: [facility] previous records (Per chart review, patient was admitted here on 01/14/25 for biliary colic.) Clinical information provided by:: patient Social determinants that could affect healthcare access:: none Patient has the following chronic illnesses:: none How is presenting disease/condition affected by chronic disease/condition?: no chronic disease Evaluation data The following diagnostics were reviewed and interpreted by me:: lab results and radiology exam(s) Lab and/or radiology exams considered but not ordered:: none Interpretation Summary: [facility] Report Signed Patient: DARRICK WALSH [facility] Record#: [id number] Birthdate: 1985 Age/Sex: 39 / F [facility] Attending Dr: Ordering Physician: Ras Finley PA-C Date of Service: 02/04/25 Procedure(s): US gall bladder Accession Number(s): [id number] cc: Fahad Garcia MD; Ras Finley PA-C~ Examination: Abdomen sonogram, Limited Date and time of exam: February 04, 2025, 2042 hours INDICATIONS: Cholecystectomy 3 weeks ago followed by right upper abdominal pain Technique: Real-time renee scale transabdominal sonographic images of the upper abdomen obtained. Findings: Absent gallbladder Normal common bile duct 0.3 cm Pancreatic head 2.3 cm Liver 14.2 cm no liver lesions Normal hepatopetal portal venous flow Patent IVC IMPRESSION: Absent gallbladder Normal common bile duct Dictated By: Fahad Garcia MD Signed By: <Electronically signed by Fahad Garcia MD in OV> 02/04/252056 [facility] Report Signed Patient: DARRICK WALSH. Record#: [id number] Birthdate: 1985 Age/Sex: 39 / F Location: [facility] Attending Dr: Ordering Physician: Jason Jaramillo DO Date of Service: 02/04/25 Procedure(s): CT abdomen pelvis w con Accession Number(s): [id number] cc: Fahad Garcia MD; NO PRIMARY/FAMILY,PHYSICIAN; Jason Jaramillo DO~ Examination: CT abdomen with intravenous contrast CT pelvis with intravenous contrast 2-D coronal reconstructions 2-D sagittal reconstructions Date and time of exam: February 04, 2025, 10:00 p.m. INDICATIONS: Abdominal pain 1 week post cholecystectomy 3 weeks ago. CTDI: vol (mGy) 16.5 DLP: (mGycm) 856 Technique: Multiple axial sections of the abdomen and pelvis have been obtained. 64 slice high-resolution scanner used. 3 mm axial sections have been obtained, post intravenous injection 60 cc [id number] 2-D sagittal, coronal reconstructions obtained. Low dose protocols were performed. One or more of the following dose reduction techniques were used; automated exposure control, adjustment of the mA and/or KV according to patient size, use of iterative reconstruction technique. Findings: Gastric mucosa appears thickened No focal liver lesions Absent gallbladder Minimal postoperative change in the gallbladder fossa Spleen not enlarged No pancreatic or adrenal mass No definite gallstones No renal or ureteral calculi Aorta is not enlarged Normal appendix No bowel obstruction Anteverted uterus Intact urinary bladder The osseous rectors are intact IMPRESSION: Gastritis pattern No abscess in the gallbladder fossa Negative for pancreatitis Normal appendix No bowel obstruction or diverticulitis Dictated By: Fahad Garcia MD Signed By: <Electronically signed by Fahad Garcia MD in OV> 02/04/25 2226 Medications / Prescriptions Medications or Prescriptions considered but not ordered:: none Medication administrations:: Medication Administration History Al Hydrox/Mg Hydrox/Simethicone (Mg Hyd/Al Hyd/Alhaji (Maalox Reg) Susp 30 Ml Udc) 30 ml PO X1 ONE Stop: 02/04/25 22:39 Lidocaine HCl (Lidocaine Viscous 2% 15 Ml Udc) 15 ml PO X1 ONE Stop: 02/04/25 22:39 Pantoprazole Sodium (Pantoprazole Inj 40 Mg Vial) 40 mg IVP X1 ONE Stop: 02/04/25 22:39 Discontinued Medications Morphine Sulfate (Morphine Sulf Inj 4 Mg/Ml Vial) 4 mg IVP X1 ONE Stop: 02/04/25 21:02 Last Admin: 02/04/25 21:15 Dose: 4 mg Documented By: CB see above Consultations Consultation(s) initiated? (list below): No Diagnosis Differential diagnosis abdominal pain: other (See MDM) Most likely diagnosis given after review of the tests above:: see clinical impression below Admission Indicated Admission indicated?: not indicated Admission Request Was there a request for admission?: No Disposition Plan Disposition Plan: Discharge Discharge Attestation Discharge Attestation: The patient and all family members were given an opportunity to ask questions and understood the discharge instructions. Discharge instructions specifically effects, indications for sooner follow up or return to the emergency department, and the expected course of current diagnosis. Patient condition: Stable Discharge Plan Plan Patient Disposition: HOME (Self Care) Prescriptions/Referrals Prescriptions/Med Rec: New pantoprazole [Protonix] 40 mg tablet,delayed release (DR/EC) 40 mg PO QDAY Qty: 30 0RF No Action hydrocodone-acetaminophen 5-325 mg Tablet 1 tab PO Q6HR MDD 4 PRN (Reason: pain (scale score 7-10)) Qty: 10 0RF docusate sodium [Colace] 100 mg capsule 100 mg PO BID Qty: 20 0RF ibuprofen 600 mg tablet 600 mg PO Q8H PRN (Reason: pain (scale score 4-6)) Qty: 15 0RF Referrals: No Primary/Family,Physician [Primary Care Provider] - In 1 week Problem List Clinical Impression: Gastritis Patient/Caregiver Discharge Instructions Education Materials: ED Gastritis (Adult) Additional Instructions: Medication as prescribed. You may also use [id number] Mylanta or Maalox as needed for pain. Follow-up with your doctor/surgeon.. Avoid hot spicy greasy fatty foods. Print Language: Wolof Stand Alone Forms: Rissa Award Info., Patient Portal Info Letter
--- NOTE | 2025-02-04 21:01 | XR_ITS ---
Examination: CT abdomen with intravenous contrast CT pelvis with intravenous contrast 2-D coronal reconstructions 2-D sagittal reconstructions Date and time of exam: February 04, 2025, 10:00 p.m. INDICATIONS: Abdominal pain 1 week post cholecystectomy 3 weeks ago. CTDI: vol (mGy) 16.5 DLP: (mGycm) 856 Technique: Multiple axial sections of the abdomen and pelvis have been obtained. 64 slice high-resolution scanner used. 3 mm axial sections have been obtained, post intravenous injection 60 cc Isovue-370 2-D sagittal, coronal reconstructions obtained. Low dose protocols were performed. One or more of the following dose reduction techniques were used; automated exposure control, adjustment of the mA and/or KV according to patient size, use of iterative reconstruction technique. Findings: Gastric mucosa appears thickened No focal liver lesions Absent gallbladder Minimal postoperative change in the gallbladder fossa Spleen not enlarged No pancreatic or adrenal mass No definite gallstones No renal or ureteral calculi Aorta is not enlarged Normal appendix No bowel obstruction Anteverted uterus Intact urinary bladder The osseous rectors are intact IMPRESSION: Gastritis pattern No abscess in the gallbladder fossa Negative for pancreatitis Normal appendix No bowel obstruction or diverticulitis
[2025-02-04 21:09] LABS: Basophils # (Auto) 0.1 Thou/mm3 (0.0-0.2); Basophils % (Auto) 1 % (0-2.5); Eosinophils # (Auto) 0.1 Thou/mm3 (0.0-0.5); Eosinophils % (Auto) 1 % (0-10); Hematocrit 38.4 % (36.0-46.0); Hemoglobin 12.6 g/dL (12.0-16.0); Immature Granulocytes Auto 0.03 Thou/mm3 (0.00-0.00); Lymphocytes # (Auto) 4.2 Thou/mm3 (1.0-4.8); Lymphocytes % (Auto) 44 % (10-50); Mean Corpuscular HGB Conc 32.8 g/dl (31.0-37.0); Mean Corpuscular Hemoglobin 29.2 pg (25.0-35.0); Mean Corpuscular Volume 89 fL (80-100); Monocytes # (Auto) 0.7 Thou/mm3 (0.0-0.8); Monocytes % (Auto) 7 % (0-12); Neutrophils # (Auto) 4.6 Thou/mm3 (1.8-7.7); Neutrophils % (Auto) 47 % (37-80); Nucleated Red Blood Cell # 0.00 Thou/mm3 (0.00-0.00); Nucleated Red Blood Cell % 0 /100 WBC (0); Platelet Count 296 Thou/mm3 (140-440); RDW Standard Deviation 40.3 fL (36.4-46.3); Red Blood Count 4.32 Miln/mm3 (4.00-5.20); White Blood Count 9.7 Thou/mm3 (3.6-11.0)
[2025-02-04 21:12] LABS: HCG Qualitative,Urine Negative
[2025-02-04] MEDS: MORPHINE SULF INJ 4 MG/ML VIAL IVP (21:15)
[2025-02-04 21:29] LABS: Alanine Aminotransferase 17 U/L (10-49); Albumin, Serum 4.3 gm/dL (3.5-5.0); Albumin/Globulin Ratio 1.4 (1.2-2.2); Alkaline Phosphatase 89 U/L (46-116); Anion Gap 7 (7-16); Aspartate Amino Transferase 20 U/L (0-34); BUN/Creatinine Ratio 22 Ratio (12-20); Bilirubin,Total 0.4 mg/dL (0.3-1.2); Blood Urea Nitrogen 13 mg/dL (9-23); Calcium 9.8 mg/dL (8.3-10.6); Calcium (Corrected) 9.8 mg/dL (8.5-10.1); Carbon Dioxide 27.9 mMol/L (20.0-31.0); Chloride 104 mMol/L (98-107); Creatinine (Component) 0.6 mg/dL (0.6-1.3); Estimated Creatinine Clearance 130.9 mL/min (>60); Globulin 3.0 gm/dL (2.3-3.5); Glucose 84 mg/dL (74-106); Lipase 39 U/L (12-53); Osmolality,Calculated 276 (275-295); Potassium 3.8 mMol/L (3.4-5.1); Sodium 139 mMol/L (136-145); Total Protein 7.3 gm/dL (5.7-8.2); eGFR > 60 See Note
[2025-02-04] MEDS: MG HYD/AL HYD/SIME (Maalox Reg) SUSP 30 ML UDC PO (23:05)
[2025-02-04] MEDS: LIDOCAINE VISCOUS 2% 15 ML UDC PO (23:05)
[2025-02-04 23:06] VITALS: BP 116/75; PULSE 67; RESP 18; TEMP 36.6; O2SAT 100
== END 2025-02-04 23:07 | disposition home or self-care (01) ==
PROVIDERS: Physician Assistant; Emergency Provider Emergency Medicine
DX: K29.70 Gastritis, unspecified, without bleeding (principal); R10.11 Right upper quadrant pain
CPT/HCPCS: 36415; 74177; 76705; 80053; 81025; 83690; 85025; 96374; 96375; 99284; A4649; J2270; J2470; J3490; Q9967; A9270